=== PATIENT | female | born 1985 | race Caucasian/White ===

== ENCOUNTER 2017-02-18 21:17 | Emergency (ER) | payer OTHER ==
[2017-02-18 21:22] VITALS: BP 133/88; PULSE 55; TEMP 97.9; BMI 30.2
--- NOTE | 2017-02-18 21:24 | PDOC ---
Rapid Medical Evaluation Chief Complaint: Bite Time Seen by Provider: 02/18/17 21:19 Medical Evaluation: Allergies Allergy/AdvReac Type Severity Reaction Status Date / Time No Known Allergies Allergy Verified 12/22/16 22:22 02/18/17 21:19 31 year female s/p insect bite last night. now with tenderness to hand. PE: quarter size hematoma to right hand. ' Plan: no orders patient to the fast track for further management of care. Discharge Disposition - Referrals Referrals: Kizzy Mullins [Primary Care Provider] - - Patient Instructions - Post Discharge Activity
[2017-02-18] MEDS ORDERED: CEPHALEXIN MONOHYDRATE 500 MG CAPSULE (UD) PO ONE (21:54)
--- NOTE | 2017-02-18 21:56 | PDOC ---
History of Present Illness - General Chief Complaint: Bite Stated Complaint: BITE Time Seen by Provider: 02/18/17 21:19 History Source: Patient Exam Limitations: No Limitations - History of Present Illness Initial Comments: 02/18/17 21:59 31-year-old female who is right hand dominant without any medical history presents to the emergency department complaining of an insect bite to the right dorsal hand yesterday. Patient states while she was sleeping, she was bit by an insect to her right dorsal mid second and third metacarpal region. Patient denies fever, chills, nausea/vomiting, chest pain, shortness of breath, extremity numbness or tingling sensation. Timing/Duration: reports: other (yesterda) Past History - Past Medical History Allergies/Adverse Reactions: Allergies Allergy/AdvReac Type Severity Reaction Status Date / Time No Known Allergies Allergy Verified 02/18/17 21:19 Home Medications: Ambulatory Orders Albuterol 0.083% Nebulizer Yen [Ventolin 0.083% Nebulizer Soln -] 1 neb NEB Q4H #1 box 12/23/16 Albuterol Sulfate Inhaler - [Ventolin HFA Inhaler -] 2 inh PO Q4H #1 inh Benzonatate [Tessalon Pearls -] 100 mg PO TID #21 capsule 12/23/16 Cetirizine HCl [Zyrtec -] 10 mg PO DAILY #30 tablet 12/23/16 Nebulizer [Compact Compressor Nebulizer] 1 each MC QID #1 each 12/23/16 Prednisone [Deltasone -] 40 mg PO DAILY #14 tablet 12/23/16 Promethazine HCl/Codeine [Prometh-Codein 6.25-10 mg/5 ml] 5 ml PO BID #30 syrup MDD 10 ml 12/23/16 Cephalexin [Keflex] 500 mg PO TID #14 capsule 02/18/17 Cephalexin [Keflex] 500 mg PO TID #14 capsule 02/18/17 Anemia: Yes COPD: No - Immunization History Immunization Up to Date: Yes - Suicide/Smoking/Psychosocial Hx Smoking History: Never smoked Review of Systems - Review of Systems Able to Perform ROS?: Yes Comments:: 02/18/17 22:00 CONSTITUTIONAL: Absent: fever, chills, diaphoresis, generalized weakness, malaise, loss of appetite MUSCULOSKELETAL: Absent: myalgia, arthralgia, joint swelling SKIN: Absent: rash, itching, pallor HEMATOLOGIC/IMMUNOLOGIC: Absent: easy bleeding, easy bruising, lymphadenopathy, frequent infections right hand Dorsal 2nd/3rd mid dordsal mc/2cm circumferential ecchymosis neg ext numbness/tingling Is the patient limited Arabic proficient: No *Physical Exam - Vital Signs Last Vital Signs Temp Pulse Resp BP Pulse Ox 97.9 F 55 L 18 133/88 100 02/18/17 21:20 02/18/17 21:20 02/18/17 21:20 02/18/17 21:20 02/18/17 21:20 - Physical Exam Comments: 02/18/17 22:00 GENERAL: Well developed, well nourished. Awake and alert. No acute distress. MUSCULOSKELETAL Normal range of motion at all joints. No bony deformities or tenderness. No CVA tenderness. EXTREMITIES: No cyanosis. No clubbing. No edema. No calf tenderness. SKIN: Warm and dry. Normal capillary refill. No rashes. No jaundice. right hand Dorsal 2nd/3rd mid dordsal mc/2cm circumferential ecchymosis F.R.O.M. *DC/Admit/Observation/Transfer Diagnosis at time of Disposition: Bite - Discharge Dispostion Disposition: HOME Condition at time of disposition: Stable Admit: No - Prescriptions Prescriptions: Cephalexin [Keflex] 500 mg PO TID #14 capsule Cephalexin [Keflex] 500 mg PO TID #14 capsule - Referrals Referrals: Kizzy Mullins [Primary Care Provider] - - Patient Instructions Printed Discharge Instructions: DI for Insect Bites and Stings Additional Instructions: Elevate your right hand Rx: Kelfex 500mg take 1 tablet three times a day Follow up with your physician Return to the ER for severe/persistent/worsening symptoms, red streaks - Post Discharge Activity
[2017-02-18] MEDS ORDERED: CEPHALEXIN MONOHYDRATE 500 MG CAPSULE (UD) ONE (22:00)
== END 2017-02-18 22:07 | disposition home or self-care (01) ==
LOC: JERFT 21:17
DX: S60.561A Insect bite (nonvenomous) of right hand, initial encounter (principal); W57.XXXA Bitten or stung by nonvenomous insect and other nonvenomous arthropods, initial encounter; Y93.89 Activity, other specified; Y92.89 Other specified places as the place of occurrence of the external cause; Y99.8 Other external cause status
CPT/HCPCS: 99281-25

== ENCOUNTER 2017-07-10 13:08 | Emergency (ER) | payer OTHER ==
[2017-07-10 13:15] VITALS: BP 154/98; PULSE 100; TEMP 98.2; BMI 30.7
--- NOTE | 2017-07-10 13:45 | PDOC ---
History of Present Illness - General History Source: Patient Exam Limitations: No Limitations - History of Present Illness Initial Comments: 07/10/17 14:17 The patient is a 32 year old female with a significant PMH of anemia, asthma, and pre-diabetes who presents to the emergency department with worsening epigastric/chest burning and vomiting beginning approximately 3-4 days ago. She reports developing a burning sensation localized in the epigastrium which radiates through her chest and up to her lower throat. She describes her vomit as greenish-yellow emesis which had a bitter taste this morning. She reports tolerating minimal PO secondary to her vomiting yesterday and this morning. She reports drinking coffee this morning. She denies prior history of heartburn. Family history is pertinent for Lupus and diabetes. The patient denies shortness of breath, headache and dizziness. Denies fever, chills, diarrhea and constipation. Denies dysuria, frequency, urgency and hematuria. Allergies: NKA Past surgical history: . Social history: No reported cigarette, alcohol, or drug use. PCP: Dr. Kizzy Mullins <Tera Simental - Last Filed: 07/10/17 14:32> - General History Source: Patient Exam Limitations: No Limitations <Maira Wetzel - Last Filed: 07/10/17 17:59> - General Chief Complaint: Chest Pain Stated Complaint: CHEST PAIN, SOB Time Seen by Provider: 07/10/17 13:44 Past History <Tera Simental - Last Filed: 07/10/17 14:32> - Past Medical History Anemia: Yes Asthma: Yes COPD: No Diabetes: Yes (pre) - Immunization History Immunization Up to Date: Yes - Suicide/Smoking/Psychosocial Hx Smoking History: Never smoked Have you smoked in the past 12 months: No Information on smoking cessation initiated: No Hx Alcohol Use: No Drug/Substance Use Hx: No Substance Use Type: None <Maira Wetzel - Last Filed: 07/10/17 17:59> - Past Medical History Allergies/Adverse Reactions: Allergies Allergy/AdvReac Type Severity Reaction Status Date / Time No Known Allergies Allergy Verified 07/10/17 13:10 Home Medications: Ambulatory Orders Albuterol Sulfate Inhaler - [Ventolin HFA Inhaler -] 2 inh PO Q4H #1 inh Cephalexin [Keflex] 500 mg PO TID #14 capsule 02/18/17 Cephalexin [Keflex] 500 mg PO TID #14 capsule 02/18/17 Ondansetron HCl [Zofran] 4 mg PO BID PRN #10 tablet 07/10/17 Pantoprazole Sodium [Protonix -] 40 mg PO DAILY #30 tablet.ec 07/10/17 Review of Systems - Review of Systems Able to Perform ROS?: Yes Comments:: 07/10/17 14:17 GENERAL/CONSTITUTIONAL: No fever or chills. No weakness. HEAD, EYES, EARS, NOSE AND THROAT: No change in vision. No ear pain or discharge. No sore throat. CARDIOVASCULAR: No shortness of breath. RESPIRATORY: No cough, wheezing, or hemoptysis. GASTROINTESTINAL: (+) Epigastric burning with radiation to chest and throat. (+ ) Vomiting. No diarrhea or constipation. GENITOURINARY: No dysuria, frequency, or change in urination. MUSCULOSKELETAL: No joint or muscle swelling or pain. No neck or back pain. SKIN: No rash NEUROLOGIC: No headache, vertigo, loss of consciousness, or change in strength/ sensation. ENDOCRINE: No increased thirst. No abnormal weight change. HEMATOLOGIC/LYMPHATIC: No anemia, easy bleeding, or history of blood clots. ALLERGIC/IMMUNOLOGIC: No hives or skin allergy. <Tera Simental - Last Filed: 07/10/17 14:32> *Physical Exam - Vital Signs Last Vital Signs Temp Pulse Resp BP Pulse Ox 98.2 F 100 H 18 154/98 100 07/10/17 13:10 07/10/17 13:10 07/10/17 13:10 07/10/17 13:10 07/10/17 13:10 - Physical Exam Comments: 07/10/17 14:32 GENERAL: Awake, alert, and fully oriented, in no acute distress HEAD: No signs of trauma EYES: PERRLA, EOMI, sclera anicteric, conjunctiva clear ENT: Auricles normal inspection, hearing grossly normal, nares patent, oropharynx clear without exudates. Moist mucosa NECK: Normal ROM, supple, no lymphadenopathy, JVD, or masses LUNGS: Breath sounds equal, clear to auscultation bilaterally. No wheezes, and no crackles HEART: Regular rate and rhythm, normal S1 and S2, no murmurs, rubs or gallops ABDOMEN: (+) Mild epigastric tenderness. Soft, normoactive bowel sounds. No guarding, no rebound. No masses EXTREMITIES: Normal range of motion, no edema. No clubbing or cyanosis. No cords, erythema, or tenderness NEUROLOGICAL: Cranial nerves II through XII grossly intact. Normal speech, normal gait SKIN: Warm, Dry, normal turgor, no rashes or lesions noted. <Tera Simental - Last Filed: 07/10/17 14:32> - Vital Signs Last Vital Signs Temp Pulse Resp BP Pulse Ox 98.2 F 100 H 18 154/98 100 07/10/17 13:10 07/10/17 13:10 07/10/17 13:10 07/10/17 13:10 07/10/17 13:10 <Maira Wetzel - Last Filed: 07/10/17 17:59> ED Treatment Course - Medications Given in the ED: ED Medications Discontinued Medications Generic Name Dose Route Start Last Admin Trade Name Freq PRN Reason Stop Dose Admin Ondansetron HCl 4 mg 07/10/17 14:02 07/10/17 14:12 Zofran Injection IVPUSH 07/10/17 14:03 4 mg ONCE ONE Administration Sucralfate 1 gm 07/10/17 14:03 07/10/17 14:12 Carafate - PO 07/10/17 14:04 1 gm NOW ONE Administration <Tera Simental - Last Filed: 07/10/17 14:32> - LABORATORY CBC & Chemistry Diagram: 07/10/17 14:00 07/10/17 14:00 <Maira Wetzel - Last Filed: 07/10/17 17:59> Medical Decision Making - Medical Decision Making 07/10/17 14:31 Ms Arizmendi is a 32-year-old female who presents emergency department with a complaint of severe and persistent heart burn Pt states her symptoms began 3-4 days ago Over the past 2 days, she has noted nausea and vomiting Difficulty tolerating foods and liqids No diarrhea No fevers or chills On examination mild epigastric tenderness to palpation RRR CTA b/l No lower abdominal tenderness to palpation DD Gastritis, biliary colic, pancreatitis 07/10/17 17:49 Laboratory Tests 07/10/17 07/10/17 07/10/17 14:00 14:00 15:00 WBC 10.3 H Hgb 12.9 Hct 38.7 Plt Count 261 Sodium 143 Potassium 3.8 Chloride 108 H Carbon Dioxide 28 BUN 8 Creatinine 0.6 Random Glucose 82 Creatine Kinase 88 Troponin I < 0.02 Serum , Qual Negative Acetone, Qual Negative L US demonstrate cholelithiasis, wall thickening, no PCCF Case reviewed with Dr Dominguez Pt can be discharged to home We have reviewed the dietary restrictions she should adhere to Pt told to return to the ER immediately for fevers, increased pain, inability to tolerate foods and liquids Clinical impression: gastritis, initial presentation Biliary colic, initial presentation <Maira Wetzel - Last Filed: 07/10/17 17:59> *DC/Admit/Observation/Transfer - Attestations Scribe Attestion: 07/10/17 14:17 Documentation prepared by Tera Simental, acting as director biomedical engineering for Maira Wetzel MD. <Tera Simetnal - Last Filed: 07/10/17 14:32> - Discharge Dispostion Decision to Admit order: No <Maira Wetzel - Last Filed: 07/10/17 17:59> Diagnosis at time of Disposition: Biliary colic Gastritis Qualifiers: Gastritis type: unspecified gastritis Chronicity: acute Gastritis bleeding: without bleeding Qualified Code(s): K29.00 - Acute gastritis without bleeding - Discharge Dispostion Disposition: HOME Condition at time of disposition: Stable - Referrals Referrals: Kizzy Mullins [Primary Care Provider] - Daniel Dominguez MD [Staff Physician] - Dylan Carcamo MD [Staff Physician] - - Patient Instructions Printed Discharge Instructions: DI for Gastritis, Gastritis (Alternative Therapy), Gove Diet, DI for Biliary Colic - Post Discharge Activity Forms/Work/School Notes: Back to Work
[2017-07-10] MEDS ORDERED: ONDANSETRON 4 MG/2 ML VIAL IVPUSH ONE (14:02)
[2017-07-10] MEDS ORDERED: SODIUM CHLORIDE 1,000 ML IV STA (14:02)
[2017-07-10] MEDS ORDERED: SUCRALFATE 1 GM TABLET (FP) PO ONE (14:03)
[2017-07-10] MEDS ORDERED: ONDANSETRON 4 MG/2 ML VIAL ONE (14:05)
[2017-07-10] MEDS ORDERED: SUCRALFATE 1 GM TABLET (FP) ONE (14:05)
[2017-07-10] MEDS ORDERED: FAMOTIDINE 20 MG/50 ML IVPB 20 MG/50 ML MG IVPB ONE ×2 (14:13→14:15)
[2017-07-10 14:37] LABS: BASO % 0.6 % (0-2.0); EOS % 1.5 % (0-4.5); HEMATOCRIT 38.7 % (32.4-45.2); HEMOGLOBIN 12.9 GM/dL (10.7-15.3); LYMPH % 20.4 % (8-40); MCH 29.5 pg (25.7-33.7); MCHC 33.4 g/dl (32.0-36.0); MEAN CELL VOLUME 88.1 fl (80-96); MEAN PLT VOLUME 10.1 fl (7.5-11.1); MONO % 6.6 % (3.8-10.2); NEUT % 70.9 % (42.8-82.8); PLATELET COUNT 261 K/MM3 (134-434); RBC 4.39 M/mm3 (3.60-5.2); RDW 13.8 % (11.6-15.6); WHITE BLOOD COUNT 10.3 K/mm3 (4.0-10.0)
[2017-07-10 15:08] LABS: ALBUMIN 3.5 g/dl (3.4-5.0); AMYLASE 65 U/L (25-115); ANION GAP 7 (8-16); BILIRUBIN,TOTAL 0.7 mg/dL (0.2-1.0); BLOOD UREA NITROGEN 8 mg/dL (7-18); CALCIUM 8.1 mg/dL (8.5-10.1); CHLORIDE 108 mmol/L (98-107); CO2 28 mmol/L (21-32); CREATININE 0.6 mg/dL (0.55-1.02); GLUCOSE,RANDOM 82 mg/dL (74-106); LIPASE 74 U/L (73-393); POTASSIUM 3.8 mmol/L (3.5-5.1); SGOT/AST 22 U/L (15-37); SGPT/ALT 28 U/L (12-78); SODIUM 143 mmol/L (136-145); TOT PROT 6.9 g/dl (6.4-8.2)
[2017-07-10 15:10] LABS: ALK PHOS 96 U/L (45-117)
[2017-07-10] MEDS ORDERED: METOCLOPRAMIDE HCL INJECTION 10 MG/2 ML VIAL IVPUSH ONE (16:05)
[2017-07-10] MEDS ORDERED: ACETAMINOPHEN 1000 MG/100 ML VIAL (NON FORMULARY) IVPB ONE (16:05)
[2017-07-10] MEDS ORDERED: METOCLOPRAMIDE HCL INJECTION 10 MG/2 ML VIAL ONE (16:07)
[2017-07-10] MEDS ORDERED: ACETAMINOPHEN INJECTION 100 ML IVPB ONE (16:07)
[2017-07-10 16:16] LABS: ACETONE SERUM NEGATIVE (NEGATIVE)
--- NOTE | 2017-07-15 00:50 | EKG ---
Test Reason : Blood Pressure : / mmHG Vent. Rate : 100 BPM Atrial Rate : 100 BPM P-R Int : 150 ms QRS Dur : 074 ms QT Int : 366 ms P-R-T Axes : 032 042 036 degrees QTc Int : 472 ms NORMAL SINUS RHYTHM NORMAL ECG NO PREVIOUS ECGS AVAILABLE Confirmed by NICOLASA MARTINEZ MD ([id number]) on 07/15/2017 12:49:57 AM Referred By: Confirmed By:NICOLASA MARTINEZ MD
== END 2017-07-10 18:07 | disposition home or self-care (01) ==
LOC: JER 13:08
PROC: 3E033GC Introduction of Other Therapeutic Substance into Peripheral Vein, Percutaneous Approach (ICD-10-PCS; principal; 2017-07-10)
PROC: 3E033NZ Introduction of Analgesics, Hypnotics, Sedatives into Peripheral Vein, Percutaneous Approach (ICD-10-PCS; 2017-07-10)
PROC: 3E0337Z Introduction of Electrolytic and Water Balance Substance into Peripheral Vein, Percutaneous Approach (ICD-10-PCS; 2017-07-10)
DX: K80.50 Calculus of bile duct without cholangitis or cholecystitis without obstruction (principal); K29.00 Acute gastritis without bleeding; J45.909 Unspecified asthma, uncomplicated; R73.03 Prediabetes
CPT/HCPCS: 36415; 76705-TC; 80053; 82009; 82150; 82550; 83690; 84484; 84703; 85025; 93005; 93010; 99284-25; J0131; J7030

== ENCOUNTER 2018-12-07 14:37 | Emergency (ER) | payer OTHER ==
[2018-12-07 14:48] VITALS: TEMP 98.5; BMI 28.3
--- NOTE | 2018-12-07 14:50 | PDOC ---
Rapid Medical Evaluation Chief Complaint: Headache Time Seen by Provider: 12/07/18 14:47 Medical Evaluation: Allergies Allergy/AdvReac Type Severity Reaction Status Date / Time No Known Allergies Allergy Verified 12/07/18 14:45 12/07/18 14:47 I have performed a brief in-person evaluation of this patient. The patient presents with a chief complaint of: L sided headache w/ photophobia since Friday s/p cervical cone biopsy on Friday. Took tylenol at 12. H/o migraines, feels like her migraines but this time also has L sided facial numbness. I have ordered the following: CBC, CMP, UCG, reglan, benadryl, IV fluids The patient will proceed to the ED for further evaluation. Discharge Disposition - Diagnosis Headache - Referrals - Patient Instructions - Post Discharge Activity
[2018-12-07] MEDS ORDERED: METOCLOPRAMIDE HCL INJECTION 10 MG/2 ML VIAL IVPUSH ONE (14:52)
[2018-12-07] MEDS ORDERED: SODIUM CHLORIDE 1,000 ML IV STA (14:53)
[2018-12-07] MEDS ORDERED: METOCLOPRAMIDE HCL INJECTION 10 MG/2 ML VIAL ONE (15:12)
[2018-12-07 15:29] LABS: BASO % 0.5 % (0-2.0); EOS % 2.5 % (0-4.5); HEMATOCRIT 38.1 % (32.4-45.2); HEMOGLOBIN 12.6 GM/dL (10.7-15.3); LYMPH % 18.2 % (8-40); MCH 29.3 pg (25.7-33.7); MCHC 33.1 g/dl (32.0-36.0); MEAN CELL VOLUME 88.6 fl (80-96); MEAN PLT VOLUME 9.5 fl (7.5-11.1); NEUT % 73.8 % (42.8-82.8); PLATELET COUNT 260 K/MM3 (134-434); RBC 4.31 M/mm3 (3.60-5.2); RDW 13.7 % (11.6-15.6); WHITE BLOOD COUNT 13.8 K/mm3 (4.0-10.0)
[2018-12-07 15:55] LABS: ALBUMIN 3.7 g/dl (3.4-5.0); BILIRUBIN,TOTAL 0.7 mg/dL (0.2-1); BLOOD UREA NITROGEN 8.5 mg/dL (7-18); CALCIUM 8.8 mg/dL (8.5-10.1); CREATININE 0.7 mg/dL (0.55-1.3); POTASSIUM 3.5 mmol/L (3.5-5.1); TOT PROT 6.8 g/dl (6.4-8.2)
[2018-12-07 16:07] LABS: PHOSPHOROUS 3.5 mg/dL (2.5-4.9)
[2018-12-07] MEDS ORDERED: KETOROLAC TROMETHAMINE 30 MG/1 ML VIAL IVPUSH ONE (16:29)
[2018-12-07] MEDS ORDERED: KETOROLAC TROMETHAMINE 30 MG/1 ML VIAL ONE (16:30)
--- NOTE | 2018-12-07 17:25 | PDOC ---
History of Present Illness - General Chief Complaint: Headache Stated Complaint: HEADACHE Time Seen by Provider: 12/07/18 14:47 History Source: Patient Exam Limitations: No Limitations - History of Present Illness Initial Comments: 12/07/18 16:20 33-year-old female presents to ED with frontal throbbing pressure since Friday after receiving cervical biopsy performed by her egg sorter. Patient states only gets headaches with similar presentation but states has not improved after taking Motrin 600 mg x 4. Patient also complained of mild nausea and denies any visual changes, fever, chills next stiffness, difficulty swallowing or ear pain. Patient does state mild photosensitivity which she states is also similar in presentation. Patient also states had mild left facial decreased sensation yesterday that resolved within an hour of taking Motrin which she states she is has experience with migraines in the past Timing/Duration: reports: other Severity: Yes: moderate Associated Symptoms: reports: nausea/vomiting, other Past History - Travel Traveled outside of the country in the last 30 days: No Close contact w/someone who was outside of country & ill: No - Past Medical History Allergies/Adverse Reactions: Allergies Allergy/AdvReac Type Severity Reaction Status Date / Time No Known Allergies Allergy Verified 12/11/18 10:22 Home Medications: Ambulatory Orders Albuterol Sulfate Inhaler - [Ventolin HFA Inhaler -] 2 inh PO Q4H #1 inh Cephalexin [Keflex] 500 mg PO TID #14 capsule 02/18/17 Cephalexin [Keflex] 500 mg PO TID #14 capsule 02/18/17 Ondansetron HCl [Zofran] 4 mg PO BID PRN #10 tablet 07/10/17 Pantoprazole Sodium [Protonix -] 40 mg PO DAILY #30 tablet.ec 07/10/17 Anemia: Yes Asthma: Yes COPD: No Diabetes: Yes (pre) - Immunization History Immunization Up to Date: Yes - Psycho Social/Smoking Cessation Hx Smoking History: Never smoked Have you smoked in the past 12 months: No Hx Alcohol Use: No Drug/Substance Use Hx: No Substance Use Type: None Patient Lives Alone: No Lives with/in: spouse/SO Neuro Specific PMHX - Complaint Specific PMHX Migraine: Yes Review of Systems - Review of Systems Able to Perform ROS?: Yes Constitutional: No: Symptoms Reported HEENTM: No: Symptoms Reported Respiratory: No: Symptoms reported Cardiac (ROS): No: Symptoms Reported ABD/GI: Yes: Symptoms Reported, Nausea Musculoskeletal: No: Symptoms Reported Integumentary: No: Symptoms Reported Neurological: Yes: Headache, Numbness Endocrine: No: Symptoms Reported Hematologic/Lymphatic: No: Symptoms Reported *Physical Exam - Vital Signs Last Vital Signs Temp Pulse Resp BP Pulse Ox 98.5 F 82 17 133/83 100 12/07/18 14:45 12/07/18 14:45 12/07/18 14:45 12/07/18 14:45 12/07/18 14:45 - Physical Exam General Appearance: Yes: Nourished, Appropriately Dressed. No: Apparent Distress HEENT: positive: EOMI, LIZZIE, TMs Normal, Pharynx Normal. negative: Pale Conjunctivae Neck: positive: Supple. negative: Decreased range of motion, Tender lateral Respiratory/Chest: positive: Lungs Clear, Normal Breath Sounds. negative: Respiratory Distress, Accessory Muscle Use Cardiovascular: positive: Regular Rhythm, Regular Rate. negative: Murmur Gastrointestinal/Abdominal: positive: Soft. negative: Tenderness Integumentary: positive: Normal Color, Warm, Moist Neurologic: positive: Motor Strength 5/5 (Ambulatory) ED Treatment Course - LABORATORY CBC & Chemistry Diagram: 12/07/18 15:20 12/07/18 15:20 - ADDITIONAL ORDERS Additional order review: Laboratory Results 12/07/18 12/07/18 12/07/18 15:56 15:20 15:20 Sodium 140 Potassium 3.5 Chloride 105 Carbon Dioxide 29 Anion Gap 5 L BUN 8.5 Creatinine 0.7 Est GFR (CKD-EPI)AfAm 130.10 Est GFR (CKD-EPI)NonAf 112.25 Random Glucose 116 H Calcium 8.8 Phosphorus 3.5 Magnesium 2.0 Total Bilirubin 0.7 AST 12 L ALT 21 Alkaline Phosphatase 99 Total Protein 6.8 Albumin 3.7 Beta HCG, Quant < 1.0 Urine HCG, Qual Negative 12/07/18 15:20 RBC 4.31 MCV 88.6 MCHC 33.1 RDW 13.7 MPV 9.5 Neutrophils % 73.8 Lymphocytes % 18.2 Monocytes % 5.0 Eosinophils % 2.5 Basophils % 0.5 - Medications Given in the ED: ED Medications Discontinued Medications Generic Name Dose Route Start Last Admin Trade Name Freq PRN Reason Stop Dose Admin Diphenhydramine HCl 25 mg 12/07/18 14:50 12/07/18 15:24 Benadryl Injection - IVPUSH 12/07/18 14:51 25 mg ONCE ONE Administration Sodium Chloride 1,000 mls @ 1,000 mls/hr 12/07/18 14:53 12/07/18 15:24 Normal Saline - IV 12/07/18 15:52 1,000 mls/hr ASDIR STA Administration Ketorolac Tromethamine 30 mg 12/07/18 16:29 12/07/18 16:34 Toradol Injection - IVPUSH 12/07/18 16:30 30 mg ONCE ONE Administration Metoclopramide HCl 10 mg 12/07/18 14:52 12/07/18 15:24 Reglan Injection - IVPUSH 12/07/18 14:53 10 mg ONCE ONE Administration Medical Decision Making - Medical Decision Making 12/07/18 16:26 Chief complaint: Frontal throbbing pressure since Friday after receiving a cervical biopsy patient states similar in presentation. Exam: No neurofocal deficits vital signs stable. Patient given Benadryl and Reglan along with fluids prior to my arrival from [facility]. Plan: Patient states 3 out of 10 pain continues and so Toradol 30 mg IV ordered. 12/07/18 17:27 Selected Entries 12/07/18 14:45 Temperature 98.5 F Pulse Rate 82 Laboratory Tests 12/07/18 12/07/18 12/07/18 15:20 15:20 15:20 WBC 13.8 H Hgb 12.6 Hct 38.1 Absolute Neuts (auto) 10.2 H Neutrophils % 73.8 Sodium 140 Potassium 3.5 Chloride 105 Carbon Dioxide 29 Anion Gap 5 L BUN 8.5 Creatinine 0.7 Random Glucose 116 H Calcium 8.8 Phosphorus 3.5 Magnesium 2.0 Total Bilirubin 0.7 AST 12 L ALT 21 Alkaline Phosphatase 99 Total Protein 6.8 Albumin 3.7 Beta HCG, Quant < 1.0 Urine HCG, Qual 12/07/18 15:56 WBC Hgb Hct Absolute Neuts (auto) Neutrophils % Sodium Potassium Chloride Carbon Dioxide Anion Gap BUN Creatinine Random Glucose Calcium Phosphorus Magnesium Total Bilirubin AST ALT Alkaline Phosphatase Total Protein Albumin Beta HCG, Quant Urine HCG, Qual Negative Patient states feeling much better. Patient will be discharged home with recommendations to take Motrin gelcaps along with Tylenol rapid release. Discharge - Discharge Information Problems reviewed: Yes Clinical Impression/Diagnosis: Headache Condition: Improved Disposition: HOME - Follow up/Referral Referrals: Kizzy Mullins [Primary Care Provider] - - Patient Discharge Instructions Patient Printed Discharge Instructions: DI for Migraine Additional Instructions: Avoid triggers I recommend purchasing Motrin gelcaps along with Tylenol rapid release alternating them when you have moderate to severe pain until symptoms have resolved. I also recommend Excedrin Migraine if needed for severe headaches again alternating between Tylenol and Motrin - Post Discharge Activity
[2018-12-07 17:40] VITALS: BP 115/72; PULSE 63
== END 2018-12-07 17:40 | disposition home or self-care (01) ==
LOC: JER 14:37
PROC: 3E0337Z Introduction of Electrolytic and Water Balance Substance into Peripheral Vein, Percutaneous Approach (ICD-10-PCS; principal; 2018-12-07)
PROC: 3E033NZ Introduction of Analgesics, Hypnotics, Sedatives into Peripheral Vein, Percutaneous Approach (ICD-10-PCS; 2018-12-07)
PROC: 3E033GC Introduction of Other Therapeutic Substance into Peripheral Vein, Percutaneous Approach (ICD-10-PCS; 2018-12-07)
PROC: 3E033GC Introduction of Other Therapeutic Substance into Peripheral Vein, Percutaneous Approach (ICD-10-PCS; 2018-12-07)
DX: R51 Headache (principal); Z98.890 Other specified postprocedural states; G43.909 Migraine, unspecified, not intractable, without status migrainosus; J45.909 Unspecified asthma, uncomplicated; R73.03 Prediabetes; Z86.2 Personal history of diseases of the blood and blood-forming organs and certain disorders involving the immune mechanism
CPT/HCPCS: 36415; 80053; 83735; 84100; 84702; 84703; 85025; 96361; 96374; 96375; 99282-25; J7030

== ENCOUNTER 2018-12-11 10:13 | Emergency (ER) | payer OTHER ==
[2018-12-11 10:22] VITALS: BP 123/79; PULSE 85; TEMP 99.5; BMI 28.3
--- NOTE | 2018-12-11 12:03 | PDOC ---
Attending Attestation - Resident Resident Name: LuisJan - ED Attending Attestation I have performed the following: I have examined & evaluated the patient, The case was reviewed & discussed with the resident, I agree w/resident's findings & plan, Exceptions are as noted - HPI HPI: 12/11/18 12:16 33 yo presenting with fever/chills, cervical itchiness, and pelvic heaviness starting yesterday after undergoing cone biopsy on 12/04/18. Patient has a history of abnormal cells found on biopsy. Is status post multiple biopsies, and is typically followed at [facility]. She was sent to Dr. yovany osman at [facility] where she had a cold knife cold biopsy. She has been taking ibuprofen 800 mg for pain. Has not taken own temperature. Also endorses increased frequency, bilateral hip pain, and clear nonodorous vaginal discharge that has turned cloudy since today. Denies dysuria, hematuria , myalgia, abdominal pain, changes in defecation. LMP 11/01/18, regular. [employer] History: [facility] in July 2018 - 3 children: two live births, one - monogamous with - last STD check one month ago; normal PMHx: - asthma, on albuterol and pulmicort - prediabetes - anxiety and depression, not on medications Sx: - cholecystectomy - SHx: - EtOH: social - tobacco: last usage 2 weeks ago; smokes 1 pack per week x 10 years - illicit drugs: never FHx: - mom from fire incident; had stage IV breast cancer and lupus - dad, alive, has throat cancer 12/11/18 13:07 - Physicial Exam PE: 12/11/18 12:16 GENERAL: The patient is in no acute distress. ENT: Ears normal, nares patent, oropharynx clear without exudates. Moist mucous membranes. NECK: Normal range of motion, supple LUNGS: Breath sounds equal, clear to auscultation bilaterally. No wheezes, and no crackles. HEART:Regular rate and rhythm, normal S1 and S2 without murmur, rub or gallop. ABDOMEN: Soft, mild lower abdominal tenderness no voluntary guarding or rebound PELVIC: White frothy discharge noted, no CMT, postoperative changes noted ( bovied/charred tissue noted) EXTREMITIES: Normal range of motion NEUROLOGICAL: Cranial nerves II through XII grossly intact. Normal speech. No focal neurological deficits. SKIN: Warm, Dry, normal turgor, no rashes or lesions noted. 12/11/18 13:04 - Medical Decision Making 12/11/18 13:06 33-year-old female presents to the emergency department 1 week status post cold knife cone biopsy now with a change in her vaginal discharge. Patient reports subjective fevers yesterday, has a temp of 99.5 in the emergency department. We will do basic lab Will do UA We will contact operating [employer] 12/11/18 13:19 Laboratory Tests 12/11/18 12/11/18 12:30 12:30 Urine Blood Negative Urine Nitrite Negative Ur Leukocyte Esterase Negative Urine HCG, Qual Negative 12/11/18 13:40 Laboratory Tests 12/11/18 12/11/18 12/11/18 12:30 12:30 12:55 WBC 14.8 H Hgb 12.2 Hct 36.7 Plt Count 206 D Urine Blood Negative Urine Nitrite Negative Ur Leukocyte Esterase Negative Urine HCG, Qual Negative Case reviewed w/ director of product marketing office - Tamera They recommend following up in the [place] ER as her doctor is not available to see her in the office, and a covering physician would be able to see her in the ER. Pt asked to follow up with her operating surgical team for further recommendations on management of her pain
[2018-12-11 13:04] LABS: URINE APPEARANCE CLEAR; URINE BILIRUBIN NEGATIVE (NEGATIVE); URINE COLOR YELLOW; URINE GLUCOSE (UA) NEGATIVE (NEGATIVE); URINE KETONE NEGATIVE (NEGATIVE); URINE LEUK ESTERASE NEGATIVE (NEGATIVE); URINE NITRITE NEGATIVE (NEGATIVE); URINE PROTEIN NEGATIVE (NEGATIVE); URINE UROBILINOGEN 0.2 mg/dL (0.2-1.0)
[2018-12-11 13:20] LABS: BASO % 0.6 % (0-2.0); EOS % 0.9 % (0-4.5); HEMATOCRIT 36.7 % (32.4-45.2); HEMOGLOBIN 12.2 GM/dL (10.7-15.3); LYMPH % 12.8 % (8-40); MCH 29.8 pg (25.7-33.7); MCHC 33.3 g/dl (32.0-36.0); MEAN CELL VOLUME 89.4 fl (80-96); MEAN PLT VOLUME 9.9 fl (7.5-11.1); MONO % 7.6 % (3.8-10.2); NEUT % 78.1 % (42.8-82.8); PLATELET COUNT 206 K/MM3 (134-434); RDW 13.6 % (11.6-15.6); WHITE BLOOD COUNT 14.8 K/mm3 (4.0-10.0)
[2018-12-11 13:41] LABS: ALBUMIN 3.7 g/dl (3.4-5.0); BILIRUBIN,TOTAL 1.3 mg/dL (0.2-1); BLOOD UREA NITROGEN 10.2 mg/dL (7-18); CALCIUM 8.2 mg/dL (8.5-10.1); CREATININE 0.6 mg/dL (0.55-1.3); POTASSIUM 3.9 mmol/L (3.5-5.1); TOT PROT 6.8 g/dl (6.4-8.2)
--- NOTE | 2018-12-11 14:54 | PDOC ---
History of Present Illness - General Chief Complaint: Vaginal Sxs Stated Complaint: PAIN Time Seen by Provider: 12/11/18 11:01 Past History - Past Medical History Allergies/Adverse Reactions: Allergies Allergy/AdvReac Type Severity Reaction Status Date / Time No Known Allergies Allergy Verified 12/11/18 10:22 Home Medications: Ambulatory Orders Albuterol Sulfate Inhaler - [Ventolin HFA Inhaler -] 2 inh PO Q4H #1 inh Cephalexin [Keflex] 500 mg PO TID #14 capsule 02/18/17 Cephalexin [Keflex] 500 mg PO TID #14 capsule 02/18/17 Ondansetron HCl [Zofran] 4 mg PO BID PRN #10 tablet 07/10/17 Pantoprazole Sodium [Protonix -] 40 mg PO DAILY #30 tablet.ec 07/10/17 Anemia: Yes Asthma: Yes COPD: No Diabetes: Yes (pre) - Immunization History Immunization Up to Date: Yes - Psycho Social/Smoking Cessation Hx Smoking History: Never smoked Have you smoked in the past 12 months: No Hx Alcohol Use: No Drug/Substance Use Hx: No Substance Use Type: None *Physical Exam - Vital Signs Last Vital Signs Temp Pulse Resp BP Pulse Ox 99.5 F 85 16 123/79 100 12/11/18 10:19 12/11/18 10:19 12/11/18 10:19 12/11/18 10:19 12/11/18 10:19 ED Treatment Course - LABORATORY CBC & Chemistry Diagram: 12/11/18 12:55 12/11/18 12:09 - ADDITIONAL ORDERS Additional order review: Laboratory Results 12/11/18 12/11/18 12/11/18 12:30 12:30 12:09 Sodium 138 Potassium 3.9 Chloride 105 Carbon Dioxide 25 Anion Gap 7 L BUN 10.2 Creatinine 0.6 Est GFR (CKD-EPI)AfAm 136.87 Est GFR (CKD-EPI)NonAf 118.09 Random Glucose 86 Calcium 8.2 L Total Bilirubin 1.3 H AST 10 L ALT 15 Alkaline Phosphatase 90 Total Protein 6.8 Albumin 3.7 Urine Color Yellow Urine Appearance Clear Urine pH 6.0 Ur Specific [place] 1.024 Urine Protein Negative Urine Glucose (UA) Negative Urine Ketones Negative Urine Blood Negative Urine Nitrite Negative Urine Bilirubin Negative Urine Urobilinogen 0.2 Ur Leukocyte Esterase Negative Urine HCG, Qual Negative 12/11/18 12:55 RBC 4.10 MCV 89.4 MCHC 33.3 RDW 13.6 MPV 9.9 Neutrophils % 78.1 Lymphocytes % 12.8 D Monocytes % 7.6 Eosinophils % 0.9 Basophils % 0.6 Medical Decision Making - Medical Decision Making 12/11/18 14:56 Discussed with pt that due to recent surgery and post op infection with symptoms , her primary [employer] would be best person to assess. Pt states she will head straight to [facility] ER with printed paper work and labs to be assessed by primary ob, however since work up is not completed including OB evaluation at [place], pt will s/o AMA Discharge - Discharge Information Clinical Impression/Diagnosis: Vaginal discharge, Fever Disposition: AGAINST MEDICAL ADVICE - Admission No - Follow up/Referral - Patient Discharge Instructions - Post Discharge Activity
== END 2018-12-11 15:50 | disposition left against medical advice (07) ==
LOC: JER 10:13
DX: N93.9 Abnormal uterine and vaginal bleeding, unspecified (principal); R50.9 Fever, unspecified; D64.9 Anemia, unspecified; R73.03 Prediabetes; J45.909 Unspecified asthma, uncomplicated
CPT/HCPCS: 36415; 80053; 81003; 84703; 85025; 87086; 99284-25

== ENCOUNTER 2019-03-15 23:29 | Emergency (ER) | payer OTHER ==
[2019-03-15 23:46] VITALS: TEMP 98.6; BMI 29.6
[2019-03-15] MEDS ORDERED: ALBUTEROL SO4 2.5/IPRATROPIUM 0.5 INH SOL 3 ML VIAL.NEB. NEB ONE (23:56)
--- NOTE | 2019-03-16 00:23 | PDOC ---
Attending Attestation - Resident Resident Name: Lupillo Cantu - ED Attending Attestation I have performed the following: I have examined & evaluated the patient, The case was reviewed & discussed with the resident, I agree w/resident's findings & plan, Exceptions are as noted - HPI HPI: 03/16/19 00:22 33-year-old female presents with dyspnea, wheezing and cough that she stated started this evening and for which her nebulizer treatments were not helping - Physicial Exam PE: 03/16/19 00:23 Well-nourished well-developed 33-year-old female who presents tearful with coughing Head normocephalic atraumatic Neck is supple Lungs scattered expiratory wheezing CVS regular rate rhythm S1-S2 Abdomen soft Extremities no deformities Skin warm and dry Neuro alert and oriented x3, ambulatory - Medical Decision Making 03/16/19 00:24 Patient is afebrile, does have a history of asthma and uses a nebulizer at home 03/16/19 00:34 Patient states she also started to develop some URI symptoms with some chills and cough Patient is not hypoxic Plan bronchodilators, CBC, comp, , chest x-ray, steroids and reassessment 03/16/19 02:09 Chest x-ray does not show any infiltrates, effusions or consolidation CBC is unremarkable Chemistries are unremarkable
[2019-03-16] MEDS ORDERED: methylPREDNISolone NA SUCC 125 MG/2 ML VIAL IVPUSH ONE (00:25)
[2019-03-16] MEDS ORDERED: ALBUTEROL SO4 2.5/IPRATROPIUM 0.5 INH SOL 3 ML VIAL.NEB. NEB ONE ×2 (00:26→00:39)
[2019-03-16] MEDS ORDERED: methylPREDNISolone NA SUCC 125 MG/2 ML VIAL ONE (00:27)
--- NOTE | 2019-03-16 00:41 | PDOC ---
History of Present Illness - General Chief Complaint: Asthma Stated Complaint: ASTHMA/THROAT PAIN Time Seen by Provider: 03/16/19 00:17 - History of Present Illness Initial Comments: Ms. Arizmendi is a 33 y/o female with PMH significant for asthma, presenting today with shortness of breath and cough that started on Friday. She tried using her inhaler several times without much symptomatic relief and has been worsening. Reports subjective fever. Reports productive cough. Denies chest pain. She has been hospitalized for asthma before but never intubated. Past History - Past Medical History Allergies/Adverse Reactions: Allergies Allergy/AdvReac Type Severity Reaction Status Date / Time No Known Allergies Allergy Verified 12/11/18 10:22 Home Medications: Ambulatory Orders Albuterol Sulfate Inhaler - [Ventolin HFA Inhaler -] 2 inh PO Q4H #1 inh Cephalexin [Keflex] 500 mg PO TID #14 capsule 02/18/17 Cephalexin [Keflex] 500 mg PO TID #14 capsule 02/18/17 Ondansetron HCl [Zofran] 4 mg PO BID PRN #10 tablet 07/10/17 Pantoprazole Sodium [Protonix -] 40 mg PO DAILY #30 tablet.ec 07/10/17 Anemia: No Asthma: Yes COPD: No Diabetes: Yes (pre) Psychiatric Problems: Yes (depression,anxiety) - Immunization History Td Vaccination: Yes TDAP Vaccination: Yes Immunization Up to Date: Yes - Psycho Social/Smoking Cessation Hx Smoking History: Current every day smoker Have you smoked in the past 12 months: No Number of Cigarettes Smoked Daily: 5 Information on smoking cessation initiated: No Hx Alcohol Use: No Drug/Substance Use Hx: No Substance Use Type: None Review of Systems - Review of Systems Comments:: GENERAL/CONSTITUTIONAL: Reports subjective fever. No weakness._ HEAD, EYES, EARS, NOSE AND THROAT: No change in vision. No change in hearing. No sore throat._ CARDIOVASCULAR: No chest pain. Reports shortness of breath. RESPIRATORY: Reports cough. GASTROINTESTINAL: No nausea, vomiting, diarrhea or constipation._ GENITOURINARY: No dysuria, frequency, or change in urination._ MUSCULOSKELETAL: No joint or muscle swelling or pain. No neck or back pain._ SKIN: No rash_ NEUROLOGIC: No headache, vertigo, loss of consciousness, or change in strength/ sensation._ ENDOCRINE: No increased thirst. No abnormal weight change_ HEMATOLOGIC/LYMPHATIC: No anemia, easy bleeding, or history of blood clots._ ALLERGIC/IMMUNOLOGIC: No hives or skin allergy._ *Physical Exam - Vital Signs Last Vital Signs Temp Pulse Resp BP Pulse Ox 98.6 F 125 H 20 104/78 100 03/15/19 23:41 03/15/19 23:41 03/15/19 23:41 03/15/19 23:41 03/15/19 23:41 - Physical Exam GENERAL: Awake, alert, and oriented to person/place/time, in no acute distress_ HEAD: No signs of trauma, normoc ephalic, atraumatic _ EYES: PERRLA, EOMI, sclera anicteric, conjunctiva clear_ ENT: Hearing grossly normal, nares patent, oropharynx clear without exudates. No uvular deviation. Moist mucosa_ NECK: Normal ROM, supple, no lymphadenopathy, JVD, or masses_ LUNGS: No distress, speaks in full sentences, clear to auscultation bilaterally HEART: Regular rate and rhythm, normal S1 and S2, no murmurs appreciated, peripheral pulses normal and equal bilaterally._ ABDOMEN: Soft, nontender, normoactive bowel sounds. No guarding, no rebound. No masses_ EXTREMITIES: Normal inspection, Normal range of motion, no edema. No clubbing or cyanosis_ NEUROLOGICAL: Cranial nerves II through XII grossly intact. Normal speech, normal gait, no focal sensorimotor deficits _ SKIN: Warm, Dry, normal turgor, no rashes or lesions noted_ ED Treatment Course - LABORATORY CBC & Chemistry Diagram: 03/16/19 00:41 03/16/19 00:41 - RADIOLOGY Radiology Studies Ordered: Category Date Time Status CHEST PA & LAT [RAD] Stat Radiology 03/16/19 00:24 Ordered Medical Decision Making - Medical Decision Making 03/16/19 00:51 33F hx of asthma presenting with shortness of breath, cough, subjective fever since Friday. Patient is sat-ing well on room air. Good breath sounds, no wheezes/rales/rhonchi. -cbc, cmp -ekg, cxr 03/16/19 01:05 EKG shows NSR, 95 bpm, no ST elevation/depression, QTc 480, no axis deviation. 01/21/20 02:08 CXR shows no acute intra thoracic pathology. Labs reviewed. Laboratory Last Values WBC 10.2 K/mm3 (4.0-10.0) H 03/16/19 00:41 RBC 4.18 M/mm3 (3.60-5.2) 03/16/19 00:41 Hgb 12.6 GM/dL (10.7-15.3) 03/16/19 00:41 Hct 37.0 % (32.4-45.2) 03/16/19 00:41 MCV 88.5 fl (80-96) 03/16/19 00:41 MCH 30.1 pg (25.7-33.7) 03/16/19 00:41 MCHC 34.0 g/dl (32.0-36.0) 03/16/19 00:41 RDW 14.0 % (11.6-15.6) 03/16/19 00:41 Plt Count 222 K/MM3 (134-434) 03/16/19 00:41 MPV 9.7 fl (7.5-11.1) 03/16/19 00:41 Absolute Neuts (auto) 5.9 K/mm3 (1.5-8.0) 03/16/19 00:41 Neutrophils % 58.0 % (42.8-82.8) D 03/16/19 00:41 Lymphocytes % 30.1 % (8-40) D 03/16/19 00:41 Monocytes % 9.4 % (3.8-10.2) 03/16/19 00:41 Eosinophils % 1.9 % (0-4.5) D 03/16/19 00:41 Basophils % 0.6 % (0-2.0) 03/16/19 00:41 Nucleated RBC % 0 % (0-0) 03/16/19 00:41 Sodium 141 mmol/L (136-145) 03/16/19 00:41 Potassium 3.5 mmol/L (3.5-5.1) 03/16/19 00:41 Chloride 107 mmol/L (98-107) 03/16/19 00:41 Carbon Dioxide 29 mmol/L (21-32) 03/16/19 00:41 Anion Gap 5 MMOL/L (8-16) L 03/16/19 00:41 BUN 8.6 mg/dL (7-18) 03/16/19 00:41 Creatinine 0.8 mg/dL (0.55-1.3) 03/16/19 00:41 Est GFR (CKD-EPI)AfAm 110.70 03/16/19 00:41 Est GFR (CKD-EPI)NonAf 95.52 03/16/19 00:41 Random Glucose 96 mg/dL (74-106) 03/16/19 00:41 Calcium 8.8 mg/dL (8.5-10.1) 03/16/19 00:41 Total Bilirubin 0.6 mg/dL (0.2-1) 03/16/19 00:41 AST 16 U/L (15-37) 03/16/19 00:41 ALT 20 U/L (13-61) 03/16/19 00:41 Alkaline Phosphatase 95 U/L (45-117) 03/16/19 00:41 Total Protein 7.4 g/dl (6.4-8.2) 03/16/19 00:41 Albumin 3.9 g/dl (3.4-5.0) 03/16/19 00:41 Urine Color Yellow 03/16/19 01:22 Urine Appearance Clear 03/16/19 01:22 Urine pH 7.0 (5.0-8.0) 03/16/19 01:22 Ur Specific [place] 1.026 (1.010-1.035) 03/16/19 01:22 Urine Protein Negative (NEGATIVE) 03/16/19 01:22 Urine Glucose (UA) Negative (NEGATIVE) 03/16/19 01:22 Urine Ketones Negative (NEGATIVE) 03/16/19 01:22 Urine Blood Negative (NEGATIVE) 03/16/19 01:22 Urine Nitrite Negative (NEGATIVE) 03/16/19 01:22 Urine Bilirubin Negative (NEGATIVE) 03/16/19 01:22 Urine Urobilinogen 1.0 mg/dL (0.2-1.0) 03/16/19 01:22 Ur Leukocyte Esterase Negative (NEGATIVE) 03/16/19 01:22 Urine WBC (Auto) 6 /hpf (0-5) 03/16/19 01:22 Urine RBC (Auto) 2 /hpf (0-4) 03/16/19 01:22 Urine Casts (Auto) 11 /lpf (0-8) 03/16/19 01:22 U Epithel Cells (Auto) 3.8 /HPF (0-5/HPF) 03/16/19 01:22 Urine Bacteria (Auto) 28.9 /hpf (NEGATIVE) 03/16/19 01:22 Urine HCG, Qual Negative 03/16/19 01:22 03/16/19 03:05 Pt reassessed after 30 mg Toradol IV. Reports feeling much improved. Plan to d/ c home with PCP f/u and 40 mg prednisone QD for 4 days. All questions answered. Pt verbalized understanding and agreement with plan. Return precautions given. Discharge - Discharge Information Problems reviewed: Yes Clinical Impression/Diagnosis: Asthma exacerbation - Admission No - Follow up/Referral Referrals: Kizzy Mullins [Primary Care Provider] - - Patient Discharge Instructions Patient Printed Discharge Instructions: DI for Asthma -- Adult Additional Instructions: Please continue taking your asthma medications as prescribed. Please make a follow up appointment with your primary care doctor within 1 week. Please take prednisone 40 mg daily for 4 days. If you experience any new, worsening, or concerning symptoms, including chest pain or shortness of breath, please return to the emergency department. - Post Discharge Activity
[2019-03-16 00:56] LABS: BASO % 0.6 % (0-2.0); EOS % 1.9 % (0-4.5); HEMOGLOBIN 12.6 GM/dL (10.7-15.3); LYMPH % 30.1 % (8-40); MCH 30.1 pg (25.7-33.7); MEAN CELL VOLUME 88.5 fl (80-96); MEAN PLT VOLUME 9.7 fl (7.5-11.1); MONO % 9.4 % (3.8-10.2); PLATELET COUNT 222 K/MM3 (134-434); RBC 4.18 M/mm3 (3.60-5.2); WHITE BLOOD COUNT 10.2 K/mm3 (4.0-10.0)
[2019-03-16 01:17] LABS: ALBUMIN 3.9 g/dl (3.4-5.0); BILIRUBIN,TOTAL 0.6 mg/dL (0.2-1); BLOOD UREA NITROGEN 8.6 mg/dL (7-18); CALCIUM 8.8 mg/dL (8.5-10.1); CREATININE 0.8 mg/dL (0.55-1.3); POTASSIUM 3.5 mmol/L (3.5-5.1); TOT PROT 7.4 g/dl (6.4-8.2)
[2019-03-16 01:55] LABS: URINE APPEARANCE CLEAR; URINE BILIRUBIN NEGATIVE (NEGATIVE); URINE COLOR YELLOW; URINE GLUCOSE (UA) NEGATIVE (NEGATIVE); URINE KETONE NEGATIVE (NEGATIVE); URINE LEUK ESTERASE NEGATIVE (NEGATIVE); URINE NITRITE NEGATIVE (NEGATIVE); URINE PROTEIN NEGATIVE (NEGATIVE)
[2019-03-16 02:03] LABS: EPI CELLS 3.8 /HPF (0-5/HPF); HYALINE CASTS 11 /lpf (0-8); URINE BACTERIA 28.9 /hpf (NEGATIVE); URINE RBC 2 /hpf (0-4); URINE WBC 6 /hpf (0-5)
[2019-03-16] MEDS ORDERED: KETOROLAC TROMETHAMINE 30 MG/1 ML VIAL ONE (02:26)
[2019-03-16 03:24] VITALS: BP 107/70; PULSE 102
--- NOTE | 2019-03-16 11:29 | EKG ---
Test Reason : Blood Pressure : / mmHG Vent. Rate : 095 BPM Atrial Rate : 095 BPM P-R Int : 142 ms QRS Dur : 086 ms QT Int : 382 ms P-R-T Axes : 044 052 035 degrees QTc Int : 480 ms NORMAL SINUS RHYTHM PROLONGED QT ABNORMAL ECG WHEN COMPARED WITH ECG OF 10-JUL-2017 13:17, NO SIGNIFICANT CHANGE WAS FOUND Confirmed by Lupillo Pinto MD ([id number]) on 03/16/2019 11:28:32 AM Referred By: Confirmed By:Lupillo Pinto MD
== END 2019-03-16 03:24 | disposition home or self-care (01) ==
LOC: JER 23:29
PROC: 3E0333Z Introduction of Anti-inflammatory into Peripheral Vein, Percutaneous Approach (ICD-10-PCS; principal; 2019-03-15)
DX: J45.901 Unspecified asthma with (acute) exacerbation (principal); R73.03 Prediabetes; F41.8 Other specified anxiety disorders; F32.9 Major depressive disorder, single episode, unspecified; F17.210 Nicotine dependence, cigarettes, uncomplicated
CPT/HCPCS: 36415; 71046-TC-FY; 80053; 81003; 84703; 85025; 93005; 93010; 96374; 99283-25

== ENCOUNTER 2020-04-10 22:17 | Emergency (ER) | payer OTHER ==
[2020-04-10 22:22] VITALS: BP 133/78; PULSE 85; TEMP 98.2; BMI 32.5
[2020-04-10] MEDS ORDERED: IBUPROFEN 400 MG TABLET (FP) PO ONE ×2 (23:45→23:52)
== END 2020-04-11 00:46 | disposition home or self-care (01) ==
LOC: JER 22:17
DX: N64.4 Mastodynia (principal)
CPT/HCPCS: 99283-25

== ENCOUNTER 2022-02-13 00:05 | Emergency (ER) | payer BC, OTHER ==
[2022-02-13 00:16] VITALS: BP 136/88; RESP 26; TEMP 98.9; BMI 29.2
[2022-02-13] MEDS ORDERED: ALBUTEROL SO4 2.5/IPRATROPIUM 0.5 INH SOL 3 ML VIAL.NEB. NEB ONE ×2 (00:26→01:34)
[2022-02-13] MEDS ORDERED: predniSONE 20 MG TABLET (UD) PO ONE (01:33)
[2022-02-13] MEDS ORDERED: guaiFENesin 200 MG/10 ML 10 ML UNIT-DOSE CUPS PO ONE (01:34)
[2022-02-13] MEDS ORDERED: ALBUTEROL SO4 0.083% IH SOL 2.5 MG/3 ML VIAL.NEB. NEB ONE (01:34)
[2022-02-13] MEDS ORDERED: SODIUM CHLORIDE FOR INHALATION 3 ML VIAL.NEB IH ONE (01:34)
[2022-02-13] MEDS ORDERED: guaiFENesin/D-METHORPHAN HB 10 ML UNIT-DOSE CUPS PO ONE (01:43)
[2022-02-13] MEDS ORDERED: predniSONE 20 MG TABLET (UD) ONE (01:43)
[2022-02-13] MEDS ORDERED: guaiFENesin/D-METHORPHAN HB 10 ML UNIT-DOSE CUPS ONE (01:43)
[2022-02-13 02:30] VITALS: PULSE 96
== END 2022-02-13 02:30 | disposition home or self-care (01) ==
LOC: JER 00:05
PROC: 3E0F7GC Introduction of Other Therapeutic Substance into Respiratory Tract, Via Natural or Artificial Opening (ICD-10-PCS; principal; 2022-02-13)
DX: J40 Bronchitis, not specified as acute or chronic (principal)
CPT/HCPCS: 0241U-QW; 99285-25

== ENCOUNTER 2022-11-02 09:56 | Emergency (ER) | payer OTHER ==
[2022-11-02 10:02] VITALS: BP 142/96; PULSE 77; RESP 16; TEMP 98.6; BMI 33.3
== END 2022-11-02 11:27 | disposition home or self-care (01) ==
LOC: JERFT 09:56
DX: K64.9 Unspecified hemorrhoids (principal)
CPT/HCPCS: 99282-25

== ENCOUNTER 2023-03-19 10:00 | Emergency (ER) | payer OTHER ==
[2023-03-19 10:21] VITALS: BP 137/77; PULSE 70; RESP 20; TEMP 98.2; BMI 35.8
[2023-03-19 12:07] LABS: BASO % 0.7 % (0-2.0); EOS % 2.7 % (0-4.5); HEMATOCRIT 38.3 % (32.4-45.2); LYMPH % 30.1 % (8-40); MCH 29.1 pg (25.7-33.7); MCHC 33.9 g/dl (32.0-36.0); MEAN CELL VOLUME 85.7 fl (80-96); MEAN PLT VOLUME 8.8 fl (7.5-11.1); MONO % 6.9 % (3.8-10.2); NEUT % 59.6 % (42.8-82.8); PLATELET COUNT 275 10^3/uL (134-434); RBC 4.47 M/mm3 (3.60-5.2); RDW 14.2 % (11.6-15.6); WHITE BLOOD COUNT 8.8 K/mm3 (4.0-10.0)
[2023-03-19] MEDS ORDERED: FAMOTIDINE 20 MG/50 ML IVPB 20 MG/50 ML MG IVPB ONE ×2 (12:51→13:22)
[2023-03-19] MEDS ORDERED: SODIUM CHLORIDE 1,000 ML IV STA (12:51)
[2023-03-19] MEDS ORDERED: ONDANSETRON 4 MG/2 ML VIAL IVPUSH ONE (12:51)
[2023-03-19 13:21] LABS: EPI CELLS >36 /uL (0-25.1); HYALINE CASTS 1 /uL (0-3.1); URINE APPEARANCE CLEAR; URINE BACTERIA 541 /uL (0-1359); URINE BILIRUBIN NEGATIVE (NEGATIVE); URINE COLOR YELLOW; URINE GLUCOSE (UA) NEGATIVE (NEGATIVE); URINE KETONE NEGATIVE (NEGATIVE); URINE LEUK ESTERASE TRACE (NEGATIVE); URINE NITRITE NEGATIVE (NEGATIVE); URINE PROTEIN NEGATIVE (NEGATIVE); URINE RBC 9 /uL (0-23.9); URINE UROBILINOGEN 0.2 mg/dL (0.2-1.0); URINE WBC 40 /uL (0-25.8)
[2023-03-19] MEDS ORDERED: ONDANSETRON 4 MG/2 ML VIAL ONE (13:22)
[2023-03-19 13:24] LABS: HCG,QUALITATIVE URINE Negative
[2023-03-19 13:59] LABS: INR 1.25 (0.83-1.09); PROTHROMBIN TIME (PATIENT) 14.5 SEC (9.7-13.0)
[2023-03-19 14:02] LABS: ACTIVATED PTT 36.1 SECONDS (25.2-36.5)
[2023-03-19 14:21] LABS: ALBUMIN 3.7 g/dl (3.4-5.0); BILIRUBIN,TOTAL 1.5 mg/dL (0.2-1); BLOOD UREA NITROGEN 11.4 mg/dL (7-18); CALCIUM 9.2 mg/dL (8.5-10.1); CREATININE 0.7 mg/dL (0.55-1.3); POTASSIUM 4.1 mmol/L (3.5-5.1); TOT PROT 7.4 g/dl (6.4-8.2)
== END 2023-03-19 17:45 | disposition home or self-care (01) ==
LOC: JER 10:00
PROC: 3E033GC Introduction of Other Therapeutic Substance into Peripheral Vein, Percutaneous Approach (ICD-10-PCS; principal; 2023-03-19)
PROC: 3E033GC Introduction of Other Therapeutic Substance into Peripheral Vein, Percutaneous Approach (ICD-10-PCS; 2023-03-19)
DX: R11.2 Nausea with vomiting, unspecified (principal); R10.84 Generalized abdominal pain; K21.9 Gastro-esophageal reflux disease without esophagitis; Z20.822 Contact with and (suspected) exposure to COVID-19
CPT/HCPCS: 0241U-QW; 36415; 74177-TC; 80053; 81003; 83690; 84484; 84703; 85025; 85610; 85730; 93005; 93010; 99285-25; Q9967

== ENCOUNTER 2023-12-11 12:07 | Emergency (ER) | payer OTHER ==
[2023-12-11 12:16] VITALS: BP 130/88; PULSE 69; RESP 20; TEMP 97.6; BMI 34.5
[2023-12-11] MEDS ORDERED: KETOROLAC TROMETHAMINE 30 MG/1 ML VIAL ONE (13:11)
[2023-12-11] MEDS: KETOROLAC TROMETHAMINE 30 MG/1 ML VIAL IM ONE (13:18)
[2023-12-11 14:20] LABS: HIV INTERPRETATION NEGATIVE (NEGATIVE)
== END 2023-12-11 13:30 | disposition home or self-care (01) ==
LOC: JERFT 12:07
PROC: 3E0233Z Introduction of Anti-inflammatory into Muscle, Percutaneous Approach (ICD-10-PCS; principal; 2023-12-11)
DX: S93.402A Sprain of unspecified ligament of left ankle, initial encounter (principal); X50.1XXA Overexertion from prolonged static or awkward postures, initial encounter
CPT/HCPCS: 36415; 73610-TC-LT-FY; 73630-TC-LT; 86803; 87389; 99284-25

== ENCOUNTER 2024-01-16 04:24 | Day surgery (SDC) | payer OTHER ==
[2024-01-14 18:04] VITALS: BMI 34.5
[2024-01-16] MEDS ORDERED: ACETAMINOPHEN 500 MG TABLET (FP) PO PRN (09:04)
[2024-01-16 10:44] VITALS: RESP 20
[2024-01-16] MEDS: LIDOCAINE HCL 1% PRESERVATIVE FREE - 30ML VIAL IJ ONE ×2 (12:04)
[2024-01-16] MEDS: IOHEXOL 180 MG/1 ML ML IJ ONE (12:07)
[2024-01-16] MEDS: DEXAMETHASONE SOD PHOSPHATE 10 MG/1 ML VIAL IM ONE ×3 (12:09)
[2024-01-16 12:42] VITALS: BP 112/72; PULSE 57; TEMP 97.1
== END 2024-01-16 13:15 | disposition home or self-care (01) ==
LOC: JASU-SURG 04:24
PROVIDERS: ATTEND Pain Medicine Pain Medicine
PROC: 3E0R3BZ Introduction of Anesthetic Agent into Spinal Canal, Percutaneous Approach (ICD-10-PCS; 2024-01-16)
PROC: 3E0R33Z Introduction of Anti-inflammatory into Spinal Canal, Percutaneous Approach (ICD-10-PCS; principal; 2024-01-16 12:15)
DX: M54.16 Radiculopathy, lumbar region (principal)
CPT/HCPCS: 76000-TC-FY; 81025; J1100